=== PATIENT | female | born 1960 | race Caucasian/White ===

== ENCOUNTER → 2018-06-24 12:22 | Outpatient (CLI) | payer OTHER, SELFPAY ==
[2018-06-26 08:30] LABS: HPV Reflexed? NOT INDICATED
== END ==
PROVIDERS: Family Provider Family Medicine; PCP Family Medicine; Visit Provider Family Medicine
DX: Z12.4 Encounter for screening for malignant neoplasm of cervix (principal)
CPT/HCPCS: 88175; G0145

== ENCOUNTER → 2018-08-26 15:27 | Outpatient (CLI) | payer SELFPAY ==
--- NOTE | 2018-08-26 15:33 | BI_ITS ---
MAMMOGRAPHY - BILATERAL SCREENING REASON FOR EXAM: Female, 57 years old. Routine annual screening examination. PERTINENT HISTORY: Aunt with breast cancer. Remote bilateral ultrasound-guided breast biopsies. TECHNIQUE: Digital bilateral breast abe (3D mammographic acquisition) in the CC and MLO projections. 2-D mediolateral oblique (MLO) and craniocaudad (CC) views of both breasts were obtained. CAD: Full Field Digital Mammography with Computer Added Detection was performed. COMPARISON: Comparison is made with prior study dated May 09, 2017 and May 07, 2016. FINDINGS: Breast Composition: The breasts are heterogeneously dense, which may obscure small masses. There are no dominant masses or suspicious calcifications. There is a 1 cm x 0.95 cm well-defined nodule in the superior retroareolar region of the right breast. Correlation with ultrasound is recommended. A tissue clip marker is once again seen in the upper slightly medial aspect of the right breast as well as in the deep lateral portion of the left breast. No other significant abnormalities are identified. BI/SCREENING MAMM (CAD), BILAT IMPRESSION: 1 cm x 0.95 cm well-defined nodule in the superior retroareolar region of the right breast as described. Correlation with ultrasound is recommended. ASSESSMENT CATEGORY: BIRADS Category 0: Incomplete. Need additional imaging evaluation. A letter regarding these results will be sent to the patient by the facility within 30 days. Approximately 10% of breast cancers are not detected by mammography. A normal mammogram should not delay biopsy of a clinically suspicious abnormality. [id number] Electronically Signed: Nicholas Parker MD at 9:22 EST Tel [phone], Service support ,
== END ==
PROVIDERS: Family Provider Family Medicine; PCP Family Medicine; Referring Provider Family Medicine; Visit Provider Family Medicine
DX: Z12.31 Encounter for screening mammogram for malignant neoplasm of breast (principal)
CPT/HCPCS: 77063; 77067

== ENCOUNTER → 2018-09-02 09:51 | Outpatient (CLI) | payer SELFPAY ==
--- NOTE | 2018-09-02 09:57 | US_ITS ---
STUDY: ULTRASOUND BREAST - RIGHT REASON FOR EXAM: Female, 58 years old. Abnormal screening mammogram. TECHNIQUE: Axial and longitudinal images of the RIGHT breast were performed with a high resolution ultrasound transducer. COMPARISON: Comparison is made with prior mammogram dated August 26, 2018 and prior ultrasound right breast dated March 31, 2010. FINDINGS: RIGHT Breast: The mammographic abnormality corresponds to a 0.9 cm x 1.1 cm x 0.8 cm nodular density of mixed echogenicity. Solid and cystic changes are seen within it. This is at the 12:00 position of the breast at 1 cm from the nipple. A biopsy is recommended for further evaluation. US/Breast Limited Unilateral IMPRESSION: The mammographic and MR to correspond to a 0.9 cm x 1.1 cm x 0.8 cm heterogeneous rounded nodule at the 12:00 position of the breast at 1 cm from the nipple. A biopsy is recommended. ASSESSMENT CATEGORY: BIRADS Category 4: Suspicious - Biopsy Should Be Considered. A letter regarding these results will be sent to the patient by the facility within 30 days. Electronically Signed: Nicholas Parker MD at 14:12 EST Tel [phone], Service support ,
== END ==
PROVIDERS: Family Provider Family Medicine; PCP Family Medicine; Referring Provider Family Medicine; Visit Provider Family Medicine
DX: R92.8 Other abnormal and inconclusive findings on diagnostic imaging of breast (principal)
CPT/HCPCS: 76642

== ENCOUNTER → 2018-09-22 09:28 | Outpatient (CLI) | payer SELFPAY ==
[2018-09-22 08:33] VITALS: BMI 21.9
--- NOTE | 2018-09-22 08:40 | BRBX_PTH ---
PATIENT: CRISTIAN ZARAGOZA LOC: [facility] U#:[id number] AGE/SX: 65/F ROOM: RE09/22/[address]: Dr. Jasmin Estes MD : 1960 BED: DIS: SPEC #: [id number] RECD: 09/22/18 09:23 STATUS: HEIDI JULIETA #: [id number] BAL: 09/22/18 08:[address]: Jasmin Estes DEPT: SURGICAL PATHOLOGY RECD BY: Hamzah Brady ENTERED: 09/22/18 12:55 SP TYPE: BREAST BX OTHR DR: Dr. Trinidad Mckeon MD Tissues: Right breast, NOS Procedures: Surgery Specimen Level IV HEADER OPERATION: Ultrasound-guided needle core biopsy right breast at 11 o'clock PRE-OP DIAGNOSIS: Right breast mass TISSUE SUBMITTED: Right breast biopsy at 11 o'clock ISCHEMIC TIME: 1 minute FIXATION TIME: 11 hours MICROSCOPIC DIAGNOSIS Right breast, 11 o'clock, ultrasound-guided core biopsy: Focal chronic inflammation, histiocytic reaction and foreign body giant cell reaction, consistent with previous biopsy site. Negative for atypia or malignancy. DONTRELL:mando 09/23/18 COMMENT Correlation with clinical, radiologic findings and appropriate follow up are necessary. Please make reference to previous specimen ([id number]) right breast, core biopsy with diagnosis of fibrocystic changes and moderate intraductal hyperplasia without atypia and left breast, core biopsy with diagnosis of fibrocystic changes and moderate to florid intraductal hyperplasia without atypia. MICROSCOPIC DESCRIPTION Slides are reviewed. GROSS DESCRIPTION Received in fixative is one container labeled with the patient's name and designated right breast biopsy. The specimen consists of multiple elongated fragments of munson-yellow fibroadipose tissue mixed with blood clot that in aggregate measure 1.5 x 1 x 0.1 cm. The entire specimen is submitted in one cassette. / DONTRELL:mando 09/22/18 TC:5 CPT: [id number]
== END ==
PROVIDERS: Family Provider Family Medicine; PCP Family Medicine; Referring Provider Surgery; Visit Provider Surgery
DX: N63.10 Unspecified lump in the right breast, unspecified quadrant (principal)
CPT/HCPCS: 88305

== ENCOUNTER → 2019-08-31 | Outpatient (CLI) | payer SELFPAY ==
[2018-09-22 08:33] VITALS: BMI 21.9
--- NOTE | 2019-08-31 08:05 | BI_ITS ---
MAMMOGRAPHY - BILATERAL SCREENING REASON FOR EXAM: Female, 59 years old. Routine annual screening examination. PERTINENT HISTORY: Aunt with breast cancer. Prior right ultrasound guided Breast Biopsy. TECHNIQUE: Digital bilateral breast humaira (3D mammographic acquisition) in the CC and MLO projections. 2-D mediolateral oblique (MLO) and craniocaudad (CC) views of both breasts were obtained. CAD: Full Field Digital Mammography with Computer Added Detection was performed. COMPARISON: Comparison is made with prior study dated August 26, 2018 and May 09, 2017. FINDINGS: Breast Composition: The breasts are heterogeneously dense, which may obscure small masses. There are no dominant masses or suspicious calcifications. A nutritional clip migration within a 9 mm nodular density in the superior retroareolar origin of the right breast. Stable tissue clip marker is seen in the upper slightly medial aspect of the right breast as well. No other significant abnormalities are identified. There has been no significant change since the prior study. BI/SCREEN MAMM (CAD) W/HUMAIRA BILAT IMPRESSION: Stable bilateral screening mammogram. Yearly follow-up mammogram recommended. (A) ASSESSMENT CATEGORY: BIRADS Category 2: Benign. A letter regarding these results will be sent to the patient by the facility within 30 days. Approximately 10% of breast cancers are not detected by mammography. A normal mammogram should not delay biopsy of a clinically suspicious abnormality. [id number] Electronically Signed: Nicholas Parker, at 9:06 EST , Service support ,
== END | disposition home or self-care (01) ==
PROVIDERS: Family Provider Family Medicine; PCP Family Medicine; Referring Provider Family Medicine; Visit Provider Family Medicine
DX: Z12.31 Encounter for screening mammogram for malignant neoplasm of breast (principal)
CPT/HCPCS: 77063; 77067

== ENCOUNTER → 2020-09-06 07:14 | Outpatient (CLI) | payer OTHER, SELFPAY ==
[2018-09-22 08:33] VITALS: BMI 21.9
--- NOTE | 2020-09-06 07:17 | BI_ITS ---
MAMMOGRAPHY - BILATERAL SCREENING REASON FOR EXAM: Female, 60 years old. Routine annual screening examination. PERTINENT HISTORY: Routine Breast screen TECHNIQUE: Digital bilateral breast humaira (3D mammographic acquisition) in the CC and MLO projections. 2-D mediolateral oblique (MLO) and craniocaudad (CC) views of both breasts were obtained. CAD: Full Field Digital Mammography with Computer Added Detection was performed. COMPARISON: 08/31/2019 FINDINGS: Breast Composition: Heterogeneously dense There are no dominant masses or suspicious calcifications. No other significant abnormalities are identified. BI/SCREEN MAMM (CAD) W/HUMAIRA BILAT IMPRESSION: Stable bilateral screening mammogram. Yearly follow-up mammogram recommended. (A) ASSESSMENT CATEGORY: BIRADS Category 1: Negative. A letter regarding these results will be sent to the patient by the facility within 30 days. Approximately 10% of breast cancers are not detected by mammography. A normal mammogram should not delay biopsy of a clinically suspicious abnormality. [id number] Electronically Signed: Moiz Light, at 7:49 EST Tel , Service support ,
== END ==
PROVIDERS: PCP Family Medicine; Referring Provider Nurse Practitioner Family; Visit Provider Nurse Practitioner Family
DX: Z12.31 Encounter for screening mammogram for malignant neoplasm of breast (principal)
CPT/HCPCS: 77063; 77067

== ENCOUNTER → 2020-11-17 11:58 | Outpatient (CLI) | payer OTHER, SELFPAY ==
[2018-09-22 08:33] VITALS: BMI 21.9
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
== END ==
PROVIDERS: PCP Family Medicine; Referring Provider Family Medicine; Visit Provider Family Medicine
DX: S29.9XXA Unspecified injury of thorax, initial encounter (principal)
CPT/HCPCS: 71111

== ENCOUNTER 2021-11-29 12:32 | Outpatient (CLI) | payer OTHER, SELFPAY ==
[2021-12-04 13:31] LABS: HPV APTIMA, High Risk Negative (Negative)
[2021-12-04 13:43] LABS: HPV Reflexed? YES, CHARGE PATIENT
== END 2021-11-29 23:59 | disposition home or self-care (01) ==
LOC: LABSPEC 12:33
PROVIDERS: PCP Family Medicine; Visit Provider Family Medicine
DX: Z12.4 Encounter for screening for malignant neoplasm of cervix (principal)
CPT/HCPCS: 87624; 88175; G0145

== ENCOUNTER 2021-12-13 09:28 | Outpatient (CLI) | payer OTHER, SELFPAY ==
--- NOTE | 2021-12-13 09:32 | BI_ITS ---
MAMMOGRAPHY - BILATERAL SCREENING REASON FOR EXAM: Female, 61 years old. Routine annual screening examination. PERTINENT HISTORY: Aunt with breast cancer. TECHNIQUE: Digital bilateral breast humaira (3D mammographic acquisition) in the CC and MLO projections. 2-D mediolateral oblique (MLO) and craniocaudad (CC) views of both breasts were obtained. CAD: Full Field Digital Mammography with Computer Added Detection was performed. COMPARISON: Comparison is made with prior study dated 09/06/2020 and 08/31/2019. FINDINGS: Breast Composition: The breasts are heterogeneously dense, which may obscure small masses. There are no dominant masses or suspicious calcifications. A tissue clip marker is seen in the slightly upper retroareolar region of the right breast. No other significant abnormalities are identified. There has been no significant change since the prior study. BI/SCRN MAMM (CAD)W/HUMAIRA BILAT IMPRESSION: Stable bilateral screening mammogram. Yearly follow-up mammogram recommended. (A) ASSESSMENT CATEGORY: BIRADS Category 2: Benign. A letter regarding these results will be sent to the patient by the facility within 30 days. Approximately 10% of breast cancers are not detected by mammography. A normal mammogram should not delay biopsy of a clinically suspicious abnormality. [id number] Electronically Signed: Nicholas Parker MD at 10:44 EST ,
--- NOTE | 2021-12-13 09:34 | BD_ITS ---
STUDY: DUAL ENERGY X-RAY ABSORPTIOMETRY / DXA REASON FOR EXAM: Female, 61 years old. N95.9. Patient is postmenopausal. TECHNIQUE: Bone Mineral Density (BMD) measurements of lumbar spine and bilateral hips were obtained. COMPARISON: Comparison is made with prior study dated 04/28/2015. FINDINGS: Lumbar Spine (L1-L4): g/cm2 (0.904) / T-score (-1.6) / Z-score (0.1) Findings are suggestive of osteopenia with a low fracture risk. Left Femur Total: g/cm2 (0.732) / T-score (-1.7) / Z-score (-0.6) Left Femoral Neck: g/cm2 (0.548) / T-score (-2.7) / Z-score (-1.3) Right Femur Total: g/cm2 (0.742) / T-score (-1.6) / Z-score (-0.5) Right Femoral Neck: g/cm2 (0.568) / T-score (-2.5) / Z-score (is 1.1) The T-Scores on the most recent prior examination were: Lumbar Spine (L1-L4): There has been worsening of bone density since the previous examination. Left Femur Total: which represents a worsening of 3.8%. Right Femur Total: which represents a worsening of 2%. BD/Dexa Bone Density Study IMPRESSION: The patient is considered osteoporotic as outlined below according to World Yemi Organization (WHO) criteria with a high fracture risk. There has been worsening of bone density since the previous examination. Reference Information: The T-score is the number of standard deviations above or below the standard which is normal for young adults at their peak bone mineral density. The World Health Organization (WHO) interprets the T-scores as follows: Above -1 Normal bone density Between -1 and -2.5 Osteopenia Equal to / or below -2.5 Osteoporosis As a practical clinical guideline, osteopenia may be graded as follows: Mild -1 through -1.5 Moderate -1.6 through -2.0 Severe -2.1 through -2.4 The Z-score is the number of standard deviations above or below age-matched controls. A Z-score of less than -1.5 would be considered abnormal. References: 1. NIH Osteoporosis and Related Bone Diseases www osteo.org 2. International Society for Clinical Densitometry www iscd.org 3. National Osteoporosis Foundation www nof.org Electronically Signed: Nicholas Parker MD at 14:27 EST ,
== END 2021-12-13 23:59 | disposition home or self-care (01) ==
LOC: OPBD 09:29
PROVIDERS: PCP Family Medicine; Visit Provider Family Medicine
DX: N95.9 Unspecified menopausal and perimenopausal disorder (principal); Z12.31 Encounter for screening mammogram for malignant neoplasm of breast
CPT/HCPCS: 77063; 77067; 77080

== ENCOUNTER → 2022-07-16 | Outpatient (CLI) | payer SELFPAY ==
--- NOTE | 2022-07-16 12:34 | RAD_ITS ---
STUDY: CHEST SERIES--PA AND LATERAL VIEWS OF 1241 HOURS ON 07/16/2022 REASON FOR EXAM: 61-year-old female with symptoms of bronchitis. TECHNIQUE: A standard 2 view chest x-ray series was performed. COMPARISON: 11/17/2020. FINDINGS: Normal osseous structures except for a mild lower thoracic dextroscoliosis. No cardiomegaly or heart failure. Borderline emphysema. No pulmonary infiltrates, atelectasis, effusion, pulmonary mass lesions. No pneumonia, pneumonitis, or bronchitis. No significant interval change since the previous study of 11/17/2020. RAD/Chest PA and Lateral IMPRESSION: 1. Borderline emphysema. 2. No other evidence of active cardiopulmonary disease. 3. No bronchitis, pneumonia, or pneumonitis. Report. No significant interval change since the previous study of 11/17/2020. Electronically Signed: Pipo England MD at 1:57 EDT ,
[2022-07-20 15:31] LABS: B. pertussis IgA < 1.0 index (0.0-0.9); B. pertussis IgG 1.78 index (0.00-0.94); B. pertussis IgM < 1.0 index (0.0-0.9)
== END | disposition home or self-care (01) ==
PROVIDERS: PCP Family Medicine; Referring Provider Family Medicine; Visit Provider Family Medicine
DX: J20.9 Acute bronchitis, unspecified (principal)
CPT/HCPCS: 36415; 71046

== ENCOUNTER → 2025-03-26 | Outpatient (CLI) | payer MEDICARE, SELFPAY ==
--- OUTSIDE RECORDS SUMMARY | 2025-03-26 07:32 | XMS RPT_ITS | CCD ---
Author Organization [facility] Care Team Providers Care Investigative Reporter Name Role Phone Trinidad Mckeon Primary Care Unavailable Trinidad Mckeon Referring Unavailable Trinidad Mckeon Attending Unavailable Trinidad Mckeon Primary Care Unavailable Trinidad Mckeon Attending Unavailable Trinidad Mckeon S Attending Unavailable Trinidad Mckeon S Primary Care Unavailable Problems Active Problems Problem Classification Problem Date Documented Date Episodic/Chronic Acute bronchitis (1 source) Acute bronchitis, unspecified; Translations: [Acute bronchitis, unspecified] Onset: 07-19-2022 Episodic Menopausal disorders (1 source) Unspecified menopausal and perimenopausal disorder; Translations: [N95.9 - Unspecified menopausal and perimenopausal disorder] Onset: 12-18-2021 Chronic Past or Other Problems Problem Classification Problem Date Documented Da te Episodic/Chronic Other screening for suspected conditions (not mental disorders or infectious disease) (1 source) Encounter for screening for malignant neoplasm of cervix; Translations: [Z12.4 - Encounter for screening for malignant neoplasm of cervix] Onset: 12-04-2021 Episodic Results Test Name Value Interpretation Reference Range Facil ity B pertussis AB IgG, M, Aon 1 B.PERTUSSIS IgA < 1.0 Normal 0.0-0.9 [facility] Comment on above: Result Comment: Negative <1.0 Borderline 1.0 - 1.1 Positive >1.1 Performed at: [address] [id number] Light Bulb Assembler: Shadia Francis MD, Phone: [phone] Performed By: #### L 7100.1000 #### [facility] [address] [place], [address] B.PERTUSSIS IgG 1.78 index High 0.00-0.94 [facility] Comment on above: Result Comment: Negative <0.95 Equivocal 0.95 - 1.04 Positive >1.04 Performed By: #### L 7100.1000 #### [facility] [address] [place], [place], [address] B.PERTUSSIS IgM < 1.0 Normal 0.0-0.9 [facility] Comment on above: Result Comment: Negative <1.0 Borderline 1.0 - 1.1 Positive >1.1 Performed By: #### L 7100.1000 #### [facility] [address] [place], [place], [address] Chest PA and Lateralon 07-16 Chest PA and Lateral [facility] [address] [place] [address] Chest PA and Lateral MR#: [id number] Acct: [id number] Name: CRISTIAN ZARAGOZA Rep #: [id number] : 1960 F 61 From: Pipo England MD PCP: Dr. Trinidad Mckeon MD [facility] Study: Chest PA and Lateral Date of Exam: 07/16/22 Exam# [id number] Ordering Dr: Trinidad Mckeon MD STUDY: CHEST SERIES--PA AND LATERAL VIEWS OF 1241 HOURS ON 07/16/2022 REASON FOR EXAM: 61-year-old female with symptoms of bronchitis. TECHNIQUE: A standard 2 view chest x-ray series was performed. COMPARISON: 11/17/2020. FINDINGS: Normal osseous structures except for a mild lower thoracic dextroscoliosis. No cardiomegaly or heart failure. Borderline emphysema. No pulmonary infiltrates, atelectasis, effusion, pulmonary mass lesions. No pneumonia, pneumonitis, or bronchitis. No significant interval change since the previous study of 11/17/2020. RAD/Chest PA and Lateral IMPRESSION: 1. Borderline emphysema. 2. No other evidence of active cardiopulmonary disease. 3. No bronchitis, pneumonia, or pneumonitis. Report. No significant interval change since the previous study of 11/17/2020. Electronically Signed: Pipo England MD at 1:57 EDT , CC: Dr. Trinidad Mckeon MD Press Box Custodian: Signed Normal [facility] Dexa Bone Density Studyon Dexa Bone Density Study [facility] Services [address] [place] [address] Dexa Bone Density Study MR#: [id number] Acct: [id number] Name: CRISTIAN ZARAGOZA Rep #: [id number] : 1960 F 61 From: Nicholas mauricio MD PCP: Dr. Trinidad Mckeon MD Status: [facility] Study: Dexa Bone Density Study Date of Exam: 12/13/21 Exam# [id number] Ordering Dr: Trinidad Mckeon MD STUDY: DUAL ENERGY X-RAY ABSORPTIOMETRY / DXA REASON FOR EXAM: Female, 61 years old. N95.9. Patient is postmenopausal. TECHNIQUE: Bone Mineral Density (BMD) measurements of lumbar spine and bilateral hips were obtained. COMPARISON: Comparison is made with prior study dated 04/28/2015. FINDINGS: Lumbar Spine (L1-L4): g/cm2 (0.904) / T-score (-1.6) / Z-score (0.1) Findings are suggestive of osteopenia with a low fracture risk. Left Femur Total: g/cm2 (0.732) / T-score (-1.7) / Z-score (-0.6) Left Femoral Neck: g/cm2 (0.548) / T-score (-2.7) / Z-score (-1.3) Right Femur Total: g/cm2 (0.742) / T-score (-1.6) / Z-score (-0.5) Right Femoral Neck: g/cm2 (0.568) / T-score (-2.5) / Z-score (is 1.1) The T-Scores on the most recent prior examination were: Lumbar Spine (L1-L4): There has been worsening of bone density since the previous examination. Left Femur Total: which represents a worsening of 3.8%. Right Femur Total: which represents a worsening of 2%. BD/Dexa Bone Density Study IMPRESSION: The patient is considered osteoporotic as outlined below according to World Yemi Organization (WHO) criteria with a high fracture risk. There has been worsening of bone density since the previous examination. Reference Information: The T-score is the number of standard deviations above or below the standard which is normal for young adults at their peak bone mineral density. The World Health Organization (WHO) interprets the T-scores as follows: Above -1 Normal bone density Between -1 and -2.5 Osteopenia Equal to / or below -2.5 Osteoporosis As a practical clinical guideline, osteopenia may be graded as follows: Mild -1 through -1.5 Moderate -1.6 through -2.0 Severe -2.1 through -2.4 The Z-score is the number of standard deviations above or below age-matched controls. A Z-score of less than -1.5 would be considered abnormal. References: 1. NIH Osteoporosis and Related Bone Diseases www osteo.org 2. International Society for Clinical Densitometry www iscd.org 3. National Osteoporosis Foundation www nof.org Electronically Signed: Nicholas Parker MD at 14:27 EST , CC: Dr. Trinidad Mckeon MD Press Box Custodian: Signed Normal [facility] SCRN MAMM (CAD)W/HUMAIRA BILATo n 12-13-2021 SCRN MAMM (CAD)W/HUMAIRA BILAT [facility] Imaging Services [address] [place] [address] SCRN MAMM (CAD)W/HUMAIRA BILAT MR#: [id number] Acct: [id number] Name: CRISTIAN ZARAGOZA Rep #: [id number] : 1960 F 61 From: Nicholas mauricio MD PCP: Dr. Trinidad Mckeon MD Status: REG [facility] Study: SCRN MAMM (CAD)W/HUMAIRA BILAT Date of Exam: 12/05 Exam# [id number] Ordering Dr: Trinidad Mckeon MD MAMMOGRAPHY - BILATERAL SCREENING REASON FOR EXAM: Female, 61 years old. Routine annual screening examination. PERTINENT HISTORY: Aunt with breast cancer. TECHNIQUE: Digital bilateral breast humaira (3D mammographic acquisition) in the CC and MLO projections. 2-D mediolateral oblique (MLO) and craniocaudad (CC) views of both breasts were obtained. CAD: Full Field Digital Mammography with Computer Added Detection was performed. COMPARISON: Comparison is made with prior study dated 09/06/2020 and 08/31/2019. FINDINGS: Breast Composition: The breasts are heterogeneously dense, which may obscure small masses. There are no dominant masses or suspicious calcifications. A tissue clip marker is seen in the slightly upper retroareolar region of the right breast. No other significant abnormalities are identified. There has been no significant change since the prior study. BI/SCRN MAMM (CAD)W/HUMAIRA BILAT IMPRESSION: Stable bilateral screening mammogram. Yearly follow-up mammogram recommended. (A) ASSESSMENT CATEGORY: BIRADS Category 2: Benign. A letter regarding these results will be sent to the patient by the facility within 30 days. Approximately 10% of breast cancers are not detected by mammography. A normal mammogram should not delay biopsy of a clinically suspicious abnormality. [id number] Electronically Signed: Nicholas Parker MD at 10:44 EST , CC: Dr. Trinidad Mckeon MD Press Box Custodian: Signed Normal [facility] PAP IG HPV HR APTIMAon 12-04 ADEQ Comment Normal . [facility] Comment on above: Order Comment: CYTOLOGY INFORMATION: - CLINICAL INFORMATION: ANNUAL - Non - DATE LMP/MENOPAUSE: MENOPAUSE - COLLECTION VIAL: Thin Prep Vial - AGRICULTURAL RESEARCH ENGINEER SOURCE: CERVICAL/ENDOCERVICAL - COLLECTION TECHNIQUE: BRUSH/SPATULA Specimen Comment: [id number] Specimen Comment: No. of containers..01 ThinPrep Vial Result Comment: Sati sfactory for evaluation. Endocervical component may not be distinguished in cases of atrophy. Performed By: #### L 7400.0377 #### [facility] [address] [place], [place], [id number] COMMENT Comment Normal . [facility] Comment on above: Order Comment: CYTOLOGY INFORMATION: - CLINICAL INFORMATION: ANNUAL - Non - DATE LMP/MENOPAUSE: MENOPAUSE - COLLECTION VIAL: Thin Prep Vial - AGRICULTURAL RESEARCH ENGINEER SOURCE: CERVICAL/ENDOCERVICAL - COLLECTION TECHNIQUE: BRUSH/SPATULA Specimen Comment: [id number] Specimen Comment: No. of containers..01 ThinPrep Vial Result Comment: This liquid based ThinPrep(R) pap test was screened with the use of an image guided system. Performed By: #### L 7400.0377 #### [facility] [address] [place], [place], [id number] DIAG Comment Normal . [facility] Comment on above: Order Comment: CYTOLOGY INFORMATION: - CLINICAL INFORMATION: ANNUAL - Non - DATE LMP/MENOPAUSE: MENOPAUSE - COLLECTION VIAL: Thin Prep Vial - AGRICULTURAL RESEARCH ENGINEER SOURCE: CERVICAL/ENDOCERVICAL - COLLECTION TECHNIQUE: BRUSH/SPATULA Specimen Comment: [id number] Specimen Comment: No. of containers..01 ThinPrep Vial Result Comment: NEGA TIVE FOR INTRAEPITHELIAL LESION OR MALIGNANCY. CELLULAR CHANGES ASSOCIATED WITH ATROPHY ARE PRESENT. Performed By: #### L 7400.0377 #### [facility] [address] [place], [place], [id number] HPV APTIMA, HR Negative Normal Negative [facility] Comment on above: Order Comment: CYTOLOGY INFORMATION: - CLINICAL INFORMATION: ANNUAL - Non - DATE LMP/MENOPAUSE: MENOPAUSE - COLLECTION VIAL: Thin Prep Vial - AGRICULTURAL RESEARCH ENGINEER SOURCE: CERVICAL/ENDOCERVICAL - COLLECTION TECHNIQUE: BRUSH/SPATULA Specimen Comment: [id number] Specimen Comment: No. of containers..01 ThinPrep Vial Result Comment: This nucleic acid amplification test detects fourteen high- risk HPV types (16,18,31,33,35,39,45,51,52,56,58,59,66,68) without differentiation. Performed at: [address] [id number] Light Bulb Assembler: Anne Marie Polk MD, Phone: [phone] Performed at: =[address] [id number] Light Bulb Assembler: Anne Marie Polk MD, Phone: [phone] Performed By: #### L 7400.0377 #### [facility] [address] [place], [place], [id number] PAPSMR Comment Normal . [facility] Comment on above: Order Comment: CYTOLOGY INFORMATION: - CLINICAL INFORMATION: ANNUAL - Non - DATE LMP/MENOPAUSE: MENOPAUSE - COLLECTION VIAL: Thin Prep Vial - AGRICULTURAL RESEARCH ENGINEER SOURCE: CERVICAL/ENDOCERVICAL - COLLECTION TECHNIQUE: BRUSH/SPATULA Specimen Comment: [id number] Specimen Comment: No. of containers..01 ThinPrep Vial Result Comment: The Pap smear is a screening test designed to aid in the detection of premalignant and malignant conditions of the uterine cervix. It is not a diagnostic procedure and should not be used as the sole means of detecting cervical cancer. Both false-positive and false-negative reports do occur. Performed By: #### L 7400.0377 #### [facility] [address] [place], [address] PERFORM Comment Normal . [facility] Comment on above: Order Comment: CYTOLOGY INFORMATION: - CLINICAL INFORMATION: ANNUAL - Non - DATE LMP/MENOPAUSE: MENOPAUSE - COLLECTION VIAL: Thin Prep Vial - AGRICULTURAL RESEARCH ENGINEER SOURCE: CERVICAL/ENDOCERVICAL - COLLECTION TECHNIQUE: BRUSH/SPATULA Specimen Comment: [id number] Specimen Comment: No. of containers..01 ThinPrep Vial Result Comment: Glendy Matthew Loss Prevention Specialist (ASCP) Performed By: #### L 7400.0377 #### [facility] [address] [place], [place], [address] COMM . Normal . [facility] Comment on above: Order Comment: CYTOLOGY INFORMATION: - CLINICAL INFORMATION: ANNUAL - Non - DATE LMP/MENOPAUSE: MENOPAUSE - COLLECTION VIAL: Thin Prep Vial - AGRICULTURAL RESEARCH ENGINEER SOURCE: CERVICAL/ENDOCERVICAL - COLLECTION TECHNIQUE: BRUSH/SPATULA Specimen Comment: [id number] Specimen Comment: No. of containers..01 ThinPrep Vial Performed By: #### L 7400.0377 #### [facility] [address] [facility]. [place], [place], [address] Encounters Encounter Date Encounter Type Care Provider Facility Start: 07-16-2022 End: 07-16-2022 ambulatory Trinidad S Jolliff Facility:[facility] Start: 12-13-2021 End: 12-14-2021 ambulatory Trinidad S Jolliff Facility:[facility] Start: 11-29-2021 End: 11-30-2021 ambulatory Trinidad S Jolliff Facility:[facility] Payers Date Payer Category Payer Unknown [id number] 2021 Self-pay 2021 Unknown [id number] Unknown [id number] Unknown [id number] Unknown [id number] [id number] [id number] Summary Purpose Family History No Family History Records Found Advance Directives No Advanced Directives Records Found Additional Source Comments INFORMATION SOURCE (unrecogn ized section and content) DATE CREATED AUTHOR 07/21/2022 [facility] FOR RECORDS PERTAINING TO PATIENTS WHO ARE OR HAVE BEEN ENROLLED IN A CHEMICAL DEPENDENCY/SUBSTANCEABUSE PROGRAM, SOME INFORMATION MAY BE OMITTED. This clinical summary was aggregated from multiple sources. Caution should be exercised in using it in the provision of clinical care. This summary normalizes information from multiple sources, and as a consequence, information in this document may materially change the coding, format and clinical context of patient data. In addition, data may be omitted in some cases. CLINICAL DECISIONS SHOULD BE BASED ON THE PRIMARY CLINICAL RECORDS. [employer] provides no warranty or guarantee of the accuracy or completeness of information in this document.
[2025-03-26 10:50] LABS: Hemoglobin A1c 5.6 % (<=5.6)
[2025-03-26 13:43] LABS: Cholesterol 201 mg/dL (<=200); High Density Lipoprotein 49 mg/dL; Low Density Lipoprotein Calc. 138 mg/dL; Triglycerides 70 mg/dL; Very Low Density Lipoprotein 14 mg/dL (5-40); cholesterol:hdl ratio screen 4.13
== END | disposition home or self-care (01) ==
LOC: MTLAB 07:15
PROVIDERS: PCP Family Medicine
DX: Z13.1 Encounter for screening for diabetes mellitus (principal); Z13.220 Encounter for screening for lipoid disorders
CPT/HCPCS: 36415; 80061; 83036

== ENCOUNTER → 2025-04-20 | Outpatient (CLI) | payer MEDICARE, SELFPAY ==
--- NOTE | 2025-04-20 15:03 | BI_ITS ---
EXAM: SCRN MAMM (CAD)W/HUMAIRA BILAT DATE: 04/20/2025 CLINICAL HISTORY: F, Age 64 y/o , SCREENING TECHNIQUE: SCRN MAMM (CAD)W/HUMAIRA BILAT COMPARISON: Prior exam(s) were compared FINDINGS: TISSUE DENSITY: The breasts are heterogeneously dense, which may obscure small masses. Bilateral Breast Mammographic Findings: No suspicious masses, calcifications or other abnormalities are identified. BI/SCRN MAMM (CAD)W/HUMAIRA BILAT IMPRESSION: No mammographic evidence of malignancy in either breast. OVERALL FINAL ASSESSMENT BI-RADS 1: NEGATIVE. RECOMMEND ANNUAL MAMMOGRAPHIC SCREENING. RECOMMENDATION: Routine annual follow-up in 1 Year A letter with findings and recommendations will be mailed to the patient. Reading Location: [id number]
--- NOTE | 2025-04-20 15:09 | BD_ITS ---
PROCEDURE: DEXA BONE DENSITY STUDY 04/20/2025 REASON FOR EXAM: F, age 64 y/o . Postmenopausal. TECHNIQUE: DEXA BONE DENSITY STUDY COMPARISON: Prior study dated April 28, 2015. FINDINGS: BMD and T-SCORES Lumbar spine: 0.970 g/cm2, T-score -0.7 Levels: L1 through L4 Change from prior: Improvement of 8.3%. Left femoral neck: 0.540 g/cm2, T-score -2.8 Femoral neck comparison data not recommended for monitoring change. Left total hip: 0.746 g/cm2, T-score -1.6 Change from prior: Improvement of 1.9%. Right femoral neck: 0.548 g/cm2, T-score -2.7 Femoral neck comparison data not recommended for monitoring change. Right total hip: 0.733 g/cm2, T-score -1.7 Change from prior: Loss of 1.3%. The World Health Organization has defined the following categories based on bone density: Normal bone density: T-score equal to or greater than -1.0 Osteopenia: T-score between -1.0 and -2.5 Osteoporosis: T-score equal to or less than -2.5 The patient does meet the pharmacological treatment recommendations for prevention of osteoporosis. BD/Dexa Bone Density Study IMPRESSION: OSTEOPOROSIS. Recommend follow-up as clinically warranted. Reading Location: [place] [address]
== END | disposition home or self-care (01) ==
LOC: OPBD 15:01
PROVIDERS: PCP Family Medicine
DX: Z12.31 Encounter for screening mammogram for malignant neoplasm of breast (principal); Z78.0 Asymptomatic menopausal state; Z13.820 Encounter for screening for osteoporosis
CPT/HCPCS: 77063; 77067; 77080